=== PATIENT | male | born 1960 | race Caucasian/White ===

== ENCOUNTER → 2016-09-16 | Outpatient (CLI) | payer OTHER ==
[~2016-09-16] MED LIST: CEFTIN250 MG PO; LORTAB 5/500 501 TAB PO; NO HOME MEDICATIONS
== END ==
LOC: COL.RAD 08:02
DX: M51.26 Other intervertebral disc displacement, lumbar region (principal)

== ENCOUNTER 2020-11-06 10:45 | Outpatient (RCR) | payer OTHER | END 2020-12-07 | disposition still patient (30) | LOC: WSOH | DX: S20.221A Contusion of right back wall of thorax, initial encounter (principal); S22.31XA Fracture of one rib, right side, initial encounter for closed fracture; S50.01XA Contusion of right elbow, initial encounter; S30.0XXA Contusion of lower back and pelvis, initial encounter; Z98.890 Other specified postprocedural states; Y99.0 Civilian activity done for income or pay | CPT/HCPCS: J1885 ==

== ENCOUNTER → 2021-10-16 | Outpatient (CLI) | payer OTHER ==
[2021-10-16 14:50] LABS: CLOSTRIDIUM DIFF A/B POS; CLOSTRIDIUM DIFF A/B INTERP Toxigenic C.diff POS
== END ==
LOC: COL.LAB 12:07
PROVIDERS: Physician Assistant
DX: R19.7 Diarrhea, unspecified (principal)

== ENCOUNTER → 2023-05-04 | Outpatient (CLI) | payer OTHER | LOC: COL.RAD 07:01 | DX: M48.07 Spinal stenosis, lumbosacral region (principal) ==